=== PATIENT | female | born 1970 | race Caucasian/White ===

== ENCOUNTER 2020-10-22 10:12 | Emergency (ER) | payer OTHER ==
--- NOTE | 2020-10-22 10:41 | EDPHYS ---
Physician Documentation [facility] Name: Maria G Dong Age: 50 yrs Sex: Female : 1970 Arrival Date: 10/22/2020 Time: 10:15 Bed 23 Private MD: ED Physician Agapito Vickers HPI: 10/22 10:25 This 50 yrs old Female presents to ER via Ambulatory with complaints of Sinus jmm Congestion. 10:25 Onset: The symptoms/episode began/occurred gradually, 3 day(s) ago. Modifying factors: jmm The symptoms are alleviated by nothing, the symptoms are aggravated by nothing. Associated signs and symptoms: Pertinent negatives: fever, sore throat. This is a 50 year old female with a history of htn that presents to the ED with complaints of sinus congestion, cough, beginning appr 3 days ago. Patient states this had happened in the past. Denies fever. . 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 - Social history:: Smoking status: Patient denies any tobacco usage or history of. ROS: 10:25 Constitutional: Negative for fever, chills, and weight loss. jmm 10:25 ENT: Positive for rhinorrhea, sinus congestion, sinus pain. 10:25 Respiratory: Positive for cough. 10:25 All other systems are negative. Exam: 10:25 Constitutional: This is a well developed, well nourished patient who is awake, alert, jmm and in no acute distress. Head/Face: atraumatic. Eyes: EOMI, no conjunctival erythema appreciated 10:25 Neck: Trachea midline, Supple Chest/axilla: Normal chest wall appearance and motion. Cardiovascular: Regular rate and rhythm. No edema appreciated Respiratory: Normal respirations, no respiratory distress appreciated Abdomen/GI: Non distended, soft Back: Normal ROM Skin: General appearance color normal MS/ Extremity: Moves all extremities, no obvious deformities appreciated, no edema noted to the lower extremities Neuro: Awake and alert, normal gait Psych: Behavior is normal, Mood is normal, Patient is cooperative and pleasant 10:25 ENT: TM's: erythema, that is moderate, bilaterally, Posterior pharynx: erythema, that is mild. Vital Signs: 10:21 Weight 103.87 kg; Height 5 ft. 8 in. (172.72 cm); Pain 3/10; ll1 10:22 BP 113 / 73; Pulse 88; Resp 18; Temp 98.7(O); Pulse Ox 98% on R/A; ca1 10:21 Body Mass Index 34.82 (103.87 kg, 172.72 cm) ll1 MDM: 10:25 Patient medically screened. [facility] 10:39 Data reviewed: vital signs, nurses notes. Counseling: I had a detailed discussion with [facility] the patient and/or guardian regarding: the historical points, exam findings, and any diagnostic results supporting the discharge/admit diagnosis, the need for outpatient follow up, to return to the emergency department if symptoms worsen or persist or if there are any questions or concerns that arise at home. ED course: Patient is alert and non toxic in appearance in the ED. No signs of resp distress. Patient advised to follow up with pcp and otherwise given strict return precautions. patient understood and agrees with the plan of care. . Administered Medications: 10:39 Drug: Decadron (dexamethasone) 10 mg Route: IM; Site: right gluteus; ca1 10:59 Follow up: Response: No adverse reaction ca1 10:41 Drug: Rocephin (cefTRIAXone) 1 grams Route: IM; Site: left gluteus; ca1 10:59 Follow up: Response: No adverse reaction ca1 Disposition: 13:13 Co-signature as Attending Physician, Agapito Vickers MD I agree with the assessment and kdr plan of care. Disposition Summary: 10/22/20 10:40 Discharge Ordered Location: Home [facility] Condition: Stable [facility] Diagnosis - Acute upper respiratory infection, unspecified jmm - Acute serous otitis media, bilateral jmm Followup: jmm - With: Private Physician - When: 2 - 3 days - Reason: Recheck today's complaints, Continuance of care, Re-evaluation by your physician Discharge Instructions: - Discharge Summary Sheet jmm - Otitis Media, Adult jmm - Upper Respiratory Infection, Adult jmm Forms: - Medication Reconciliation Form [facility] - Thank You Letter [facility] - Antibiotic Education m - Prescription Opioid Use jmm Prescriptions: - Prednisone 20 mg Oral Tablet - take 3 tablets by ORAL route once daily for 5 days; 15 tablet; Refills: 0, jmm Product Selection Permitted - Zithromax Z-Camilo 250 mg Oral Tablet - take 1 tablet by ORAL route as directed for 5 days Day 1 - take two (2) tablets [facility] one time. Day 2, 3, 4 , 5 take one (1) tablet once daily.; 6 tablet; Refills: 0, Product Selection Permitted Signatures: Agapito Vickers MD MD kdr Mickail, Joel, PA PA Vidya Swan RN RN ca1 Dominic Harmon RN RN ll1
--- NOTE | 2020-10-22 10:41 | ER ---
Nurse's Notes [facility] Name: Maria G Dong Age: 50 yrs Sex: Female : 1970 Arrival Date: 10/22/2020 Time: 10:15 Bed 23 Private MD: Diagnosis: Acute upper respiratory infection, unspecified;Acute serous otitis media, bilateral Presentation: 10/22 10:21 Chief complaint: Patient states: "Bad sinus infection" since Tuesday night. No known ll1 fever. Benadryl and Sudafed aren't helping a lot. Coronavirus screen: Client denies travel out of the [place] in the last 14 days. congestion, headache, runny nose, Client presents with at least one sign or symptom that may indicate coronavirus-19. Standard/surgical mask placed on the client. Ebola Screen: Patient denies travel to an Ebola-affected area in the 21 days before illness onset. Initial Sepsis Screen: Does the patient meet any 2 criteria? No. Patient's initial sepsis screen is negative. Does the patient have a suspected source of infection? Yes: Other: sinus drainage/pain. Risk Assessment: Do you want to hurt yourself or someone else? Patient reports no desire to harm self or others. Onset of symptoms was October 19, 2020. 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 - Social history:: Smoking status: Patient denies any tobacco usage or history of. Screenin:23 Abuse screen: Denies threats or abuse. Denies injuries from another. Nutritional ca1 screening: No deficits noted. Tuberculosis screening: No symptoms or risk factors identified. Fall Risk None identified. Assessment: 10:24 General: Appears in no apparent distress. comfortable, Behavior is calm, cooperative, ca1 appropriate for age. Pain: Complains of pain in face Pain currently is 2 out of 10 on a pain scale. Pain began 2-3 days ago. Neuro: Level of Consciousness is awake, alert, obeys commands, Oriented to person, place, time, situation. Respiratory: Airway is patent Respiratory effort is even, unlabored, Respiratory pattern is regular, symmetrical, Breath sounds are clear bilaterally. Denies cough. EENT: Ear canal clear on left ear and right ear Reports nasal congestion nasal discharge that is watery since 4 days [employer]. Derm: Skin is intact, is healthy with good turgor, Skin is pink, warm \\T\\ dry. Musculoskeletal: Circulation, motion, and sensation intact. Capillary refill < 3 seconds. Vital Signs: 10:21 Weight 103.87 kg; Height 5 ft. 8 in. (172.72 cm); Pain 3/10; ll1 10:22 BP 113 / 73; Pulse 88; Resp 18; Temp 98.7(O); Pulse Ox 98% on R/A; ca1 10:21 Body Mass Index 34.82 (103.87 kg, 172.72 cm) ll1 ED Course: 10:15 Patient arrived in ED. wm 10:18 Donald Seals PA is PHCP. susan 10:18 Agapito Vickers MD is Attending Physician. [facility] 10:22 Vidya Shoemaker RN is Primary Nurse. ca1 10:23 Triage completed. ll1 10:23 Arm band placed on Patient placed in an exam room, on a stretcher. ll1 10:23 No provider procedures requiring assistance completed. Patient did not have IV access ca1 during this emergency room visit. 10:25 Patient has correct armband on for positive identification. Pulse ox on. NIBP on. Warm ca1 blanket given. Administered Medications: 10:39 Drug: Decadron (dexamethasone) 10 mg Route: IM; Site: right gluteus; ca1 10:59 Follow up: Response: No adverse reaction ca1 10:41 Drug: Rocephin (cefTRIAXone) 1 grams Route: IM; Site: left gluteus; ca1 10:59 Follow up: Response: No adverse reaction ca1 Outcome: 10:40 Discharge ordered by . [facility] 10:59 Discharged to home ambulatory. ca1 10:59 Condition: stable 10:59 Discharge instructions given to patient, Instructed on discharge instructions, follow up and referral plans. medication usage, Demonstrated understanding of instructions, follow-up care, medications, Prescriptions given X 2. 11:00 Patient left the ED. ca1 Signatures: Donald Seals PA PA jmm Acob, Cheryl, RN RN ca1 Dominic Harmon RN RN ll1 Kathleen Silva
[2020-10-22] MEDS ORDERED: dexAMETHasone 10 MG/ML VIAL ONE (10:55)
[2020-10-22] MEDS ORDERED: CEFTRIAXONE 1000 MG/VIAL ONE (10:55)
[2020-10-22] MEDS ORDERED: LIDOCAINE 1% MPF 2 ML AMPULE ONE (10:57)
[2020-10-22 11:19] VITALS: BP 113/73; TEMP 98.7; O2SAT 98
--- OUTSIDE RECORDS SUMMARY | 2020-10-22 15:25 | XMS REPORT | Continuity of Care Document ---
:1970 Author Organization [facility] t Address 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 CIGNA - MGD [id number] [address] [facility] CARECIGNA 00:00:00 - Medical HMO/POS/OPEN Center [id number] 2019-Presen tHMO/POS Problems Condition Condition Condition Status Onset Resolution Last Treating Co mments Source Name Details Category Date Date Treatment Clinician Date Complex Complex Diagnosis [facility] 2018[facility] Headache Headache 00:00: [facility] a 00 l (LUF/LI V/SA) Dizziness Dizziness Diagnosis Active 2018-[address] [facility] - [facility] l (LUF/LI V/SA) Attention Attention Problem Active [facility] deficit [facility] - hyperactiv hyperactiv Me moria ity ity l disorder disorder (LUF/L I V/SA) Hypertensi Hypertensi Problem Active [facility] - disorder disorder Memori a l (LUF/LI V/SA) Allergies, Adverse Reactions, Alerts This patient has no known allergies or adverse reactions. Social History Social Habit Start Date Stop Date Quantity Comments Source Sex Assigned At [facility] Smoking Status Start Date Stop Date Source [facility] Medications Ordered Filled Start Stop Current Ordering Indication Dosage Frequency Signature Comments Components Source Medication Medication Date Date Medication? Clinician (SIG) Name Name amlodipine amlodipine Yes [address] [address] 5 MG / 5 MG / [facility] - olmesartan olmesartan Mem oria medoxomil medoxomil l 20 MG Oral 20 MG Oral (ITALO F/LI Tablet Tablet V/SA) bustolic bustolic Yes [address] [facility] (LUF/LI V/SA) cyclobenzap cyclobenzap Yes 10mg 3xD [facility] (LUF/LI V/SA) msm/clarice msm/clarice Yes [facility] (LUF/LI V/SA) prochlorper prochlorper Yes 10mg 3xD [facility] azine 10 MG azine 10 MG L [facility]kes - Oral Tablet Oral Tablet M emoria l (LUF/LI V/SA) tumeric tumeric Yes [facility] (LUF/LI V/SA) vitamin b vitamin b Yes [facility] ([facility]F/LI V/SA) vivance vivance Yes [address] [facility] (LUF/LI V/SA) amlodipine amlodipine Yes 1 1xD orally [facility] 5 MG / 5 MG / daily [facility] - olmesartan olmesartan Mem oria medoxomil medoxomil l 20 MG Oral 20 MG Oral (ITALO F/LI Tablet Tablet V/SA) bustolic bustolic Yes 5 orally [facility] (LUF/LI V/SA) cyclobenzap cyclobenzap Yes 10mg 3xD orally [address] [facility]ine rine times per [facility] - day [facility] (LUF/LI V/SA) msm/clarice msm/clarice Yes orally [facility] (LUF/LI V/SA) prochlorper prochlorper Yes 10mg 3xD orally [address] azine 10 MG azine 10 MG times per [facility] - Oral Tablet Oral Tablet day as Memoria needed. l (as needed (LUF/LI for V/SA) headache, nausea and vomiting) tumeric tumeric Yes orally [facility] daily [facility] (LUF/LI V/SA) vitamin b vitamin b Yes orally [facility] daily [facility] (LUF/LI V/SA) vivance vivance Yes [address] daily [facility] (LUF/LI V/SA) Immunizations Ordered Immunization Filled Immunization Date Status Commen ts Source Name Name FLU SHOT 01/29 FLU SHOT 01/29 Unknown Completed [facility] (LUF/ABEBE/SA) Vital Signs Vital Name Observation Time Observation Value Comments Source Body Temperature 2020-07-05 12:00:00 98 [degF] [facility] (LUF/ABEEB/SA) Pulse Rate 2020-07-05 12:00:00 92 /min [facility] (LUF/ABEBE/SA) Respiratory Rate 2020-07-05 12:00:00 17 /min [facility] (F/ABEBE/SA) O2% BldC Oximetry 2020-07-05 12:00:00 98 % [facility] (F/ABEBE/SA) BP Systolic 2020-07-05 12:00:00 116 mm[Hg] [facility] (LUF/ABEBE/SA) BP Diastolic 2020-07-05 12:00:00 89 mm[Hg] [facility] (F/ABEBE/SA) Height 2020-07-05 12:00:00 68 [in_i] [facility] (LUF/ABEBE/SA) Weight 2020-07-05 12:00:00 106.7 kg [facility] (F/ABEBE/SA) BMI (Body Mass Index) 2020-07-05 12:00:00 36 kg/m2 [facility] (F/ABEBE/SA) Procedures Procedure Date / Time Performed Performing Clinician Marino e MM DIGITAL MAMMO 2019-11-23 11:00:00 [facility] BILATERAL BILATERAL FOOT SURGERY [facility] (LUF/ABEBE/SA) Plan of Care Planned Activity Planned Date Details Comments Source Future Scheduled 2021-11-[address] [facility] - [facility] 00:[facility] [code = 343570579] Future Scheduled 2020-04-[address] [facility] - Test 00:00:00 (12+) [code = Medical Center DEPRESSION SCREENING (12+)] Future Scheduled 2019-12-[address] [facility] - Test 00:00:00 (#1) [code = Medical Center INFLUENZA VACCINE (#1)] Future Scheduled 2019-07-11 SHINGLES VACCINES ([address] [facility] - Test 00:00:00 of 2) [code = Medical Center SHINGLES VACCINES (1 of 2)] Future Scheduled [address] [facility] - Test 00:00:00 (procedure) [code = [facility] 02123470] Future Scheduled [address] [facility] - Test 00:00:00 [facility] cervix (procedure) [code = 863152336] Future Scheduled 1988 DTAP/TDAP/TD VACCINES [facility] - Test 00:00:00 (1 - Tdap) [code = Medical C enter DTAP/TDAP/TD VACCINES (1 - Tdap)] Future Scheduled 1987-07-11 HEPATITIS C SCREENING [facility] - Test 00:00[facility]00 [code = HEPATITIS C Medical Center SCREENING] Future Scheduled [address] [facility] [facility] - Test 00:00:00 [facility] colon (procedure) [code = 442842306] Encounters Start End Encounter Admission Attending Care Care Encounter Source Date/Time Date/Time Type Type Clinicians Facility Department ID 2020-07-05 2020-07-05 Inpatient E KARON, [facility] [id number] 11:56:00 15:19:00 CAROL ANN TREVINO L u[facility] - [place], [address] [place], (LUF/[place] [address] 2020-07-05 2020-07-05 Inpatient [facility] [id number] 00:[facility]:00 00:00:00 [facility] [id number] [facility], [id number] [id number] [facility] [place], (LUF/LI [facility] V/[place] [address] Results Test Description Test Time Test Comments Results Result [facility] e Comments US VEINS LEG UNIL 2020-07-05 Doppler 14:25:04 [facility]/ABEBE/SA)Name: LISA FARIAS : 1970 Sex: F EX AM: Unilateral Lower Extremity Venous Duplex UltrasoundINDICATION: [id number]: PainCOMPARISON: NoneTECHNIQUE: Pitts scale, color Doppler and spectral waveform analysis of theunilateral lower extremity deep venous system was performed.FINDINGS:Ex ternal Iliac:Fully compressible with normal spontaneous waveforms.Common Femoral:Fully compressible with normal spontaneous waveforms.Proximal Greater Saphenous:Fully compressible.Femoral: Fully compressible with normal spontaneous waveforms. Normal response toaugmentation.Proxim al Deep Femoral:Normal spontaneous waveforms.Popliteal:F ully compressible with normal spontaneous waveforms.IMPRESSION: No evidence of deep venous thrombosis above the unilateral calf.This final report was electronically signed by Dr Venu Abdi 07/05/2020 2:19 PMDictated By: VENU ABDIDate: 07/05/2020 14:19 [facility] 2020-07-05 13:03:00 Test Item Value Reference Range Interpretation Comme nts Glucose (test code = GLU) 95 mg/dl 75-110 BUN (test code = BUN) 10.0 mg/dl 6.0-17.0 Creatinine (test code = 0.6 mg/dl 0.4-1.2 CREA) Sodium (test code = NA) 137 mmol/l 137-145 Potassium (test code = K) 4.0 mmol/l 3.5-5.0 Chloride (test code = CL) 107 mmol/l 98-107 CO2 (test code = CO2) 25 mmol/l 22-30 Calcium (test code = 9.3 mg/dl 8.4-10.2 CALC) T Protein (test code = 7.7 gm/dl 5.1-8.7 TP) Albumin (test code = ALB) 4.0 gm/dl 3.5-4.6 A/G Ratio (test code = 1.1 % 1.1-2.2 AGRAT) AST (SGOT) (test code = 16 U/L 11-36 AST) ALT (SGPT) (test code = 24 U/L 11-40 ALT) Alkaline Phos (test code 62 U/L 47-114 = ALKP) Total Bilirubin (test 0.3 mg/dl 0.2-1.2 code = TBIL) Globulin (test code = 3.7 gm/dl 2.3-3.5 H GLOBU) Calcium, Corrected (test 9.3 mg/dl 8.4-10.2 Mila ious formulas exist for code = CALCCORR) corrected s dominic calcium results, each y ielding different value s. This corrected resul t was based on the formula: Co rrected Calcium = Serum Calcium + [0.8 * ( 4 - SerumAl bumin)] EGFR if >60 mL/min/1.73m\\S\\2 (test code = EGFRAA) EGFR if Non- >60 mL/min/1.73m\\S\\2 Estimated Glomerular Taiwanese (test code = Filtra tion Rate (eGFR) EGFRNA) Reference Inter vals Decision Points for 18 y ears and older and average bod y mass: >= 60 Does not exclude kid bee disease. 30 - 59 Suggests moderate chroni c kidney disease and indica terra the need for further inv estigation including asses sment of proteinuria and cardiovascular factors. < 30 Us ually indicates a nee d for referral for assessment and management of chronic kidney failure. CBC WITH AUTO [id number] 12:42:00 Test Item Value Reference Range Interpretation Comments WBC (test code = 9.47 10\\S\\3/ul 4.80-10.80 WBC) RBC (test code = 4.90 10\\S\\6/ul 4.20-5.40 RBC) Hemoglobin (test 14.6 gm/dl 12.0-14.0 H code = HGB) Hematocrit (test 43.0 % 37.0-47.0 code = HCT) MCV (test code = 87.8 fL 81.0-99.0 MCV) MCH (test code = 29.8 pg 27.0-31.0 MCH) MCHC (test code = 34.0 gm/dl 33.0-37.0 MCHC) RDW (test code = 13.2 % 11.5-14.5 RDWVC) Platelet (test code 227 10\\S\\3/ul 130-400 = PLT) MPV (test code = 9.7 fL 7.4-10.4 A "NOT MEASUR ED" MPV) RESULTS ARE DIS PLAYED WHEN THE INSTRU MENT HAS A SUPPRESSE D OR UNREPORTABLE RE SULT. THIS WILL MOST OFTEN HAPPEN WITH THE MPV WHEN THERE IS A N ABNORMAL PLATEL ET DISTRIBUTION DU E TO A CRITICAL LOW VA LUE OR PLATELET CLUMPI NG. THE RDW MAY BE SUPPRESSED IF T HERE ARE MULTIPLE PE AKS PRESENT ON THE RBC HISTOGRAM. IN THIS CASE, A MANUAL REVIEW OF THE SLIDE WI LL BE PERFORMED, AND RBC MORPHOLOGY WILL BE NOTED ON THE RE PORT. NE% (test code = 62.1 % 42.0-75.0 NE) LY% (test code = 28.7 % 13.0-42.0 LY) MO% (test code = 8.1 % 4.0-14.0 MO) EO% (test code = 0.5 % 1.0-5.0 L EO) BA% (test code = 0.4 % 0.0-3.0 BA) IG% (test code = 0.2 % 0.0-0.4 IG%) MM, DIGITAL, MAMMO, SCREENING, WITH CHENG, BILATERAL INCLUDING [id number] 12:52:00Diagnostic workup per radiologist?->NoReason for Exam:->SCREENING MAMMOGRAMMRN#: [id number] - MM, DIGITAL, MAMMO, SCREENING, WITH CHENG, BILATERAL INCLUDING CAD BILATERAL DIGITAL SCREENING MAMMOGRAM 3D/2D WITH CAD: 11/23/2019 Comparison is made to exams dated: 06/15/2018 mammogram, 06/10/2016 mammogram, and 08/14/2014 mammogram [facility]. The tissue of both breasts is heterogeneously dense. This may lower the sensitivity of mammography. Tomosynthesis 3D imaging of the breast was also performed. Current study was also evaluated with a Computer Aided Detection (CAD) system. No significant masses, calcifications, or other findings are seen in either breast. There has been no significant interval change. IMPRESSION: NEGATIVEThere is no mammographic evidence of malignancy. A 1 year screening mammogram is recommended. Soco Riley M.D. as/penrad:12/07/2019 12:52:14 Normal BiRad 1-2 Mammogram BI-RADS: 1 Negative MM digital mammo screen with cheng [id number] 12:52:00Interface, External Ris In - 12/07/2019 2:09 PM CDTMRN#: [id number] - MM, DIGITAL, MAMMO, SCREENING, WITH CHENG, BILATERAL INCLUDING CAD BILATERAL DIGITAL SCREENING MAMMOGRAM 3D/2D WITH CAD: 11/23/2019 Comparison is made to exams dated: 06/15/2018 mammogram, 06/10/2016 mammogram, and 08/14/2014 mammogram - [facility]. The tissue of both breasts is heterogeneously dense. This may lower thesensitivity of mammography. Tomosynthesis 3D imaging of the breast was also performed. Current study was also evaluated with a Computer Aided Detection (CAD) system. No significant masses, calcifications, or other findings are seen in either breast. There has been no significant interval change. IMPRESSION: NEGATIVEThere is no mammographic evidence of malignancy. A 1 year screening mammogram is r ecommended. Soco Riley M.D. as/penrad:12/07/2019 12:52:14 Normal BiRad 1-2 Mammogram [facility]RADS: [facility] [id number] 20:20:15EXAM: XR CHEST AP/PA 1 VIEWDATE: 04/02/2019 7:39 PMINDICATION: [id number]: DyspneaCOMPARISON: Chest x-ray, 02/03/2012FINDINGS:Lines and tubes: NoneHeart size normal.No focal pulmonary opacity, pleural effusion or pneumothorax.Upper abdomen unremarkable with no free air. No acute bony abnormality.IMPRESSION:No evidence for acute disease.This final report was electronically signed by Dr Samy Daley MD 04/02/20198:13 PMDictated By: SAMY DALEYDate: 04/02/2019 20:13CT HEAD W/O [id number] 20:19:44Exam: Head CT without contrastHistory: Dizziness, headacheComparison studies: Head CT 09/10/2014Technique:Axial images were obtained from the skull base to the vertex.Coronal and sagittal images recons tructed from the axial data. Dose modulation,iterative reconstruction, and/or weight based adjustment of the mA/kV wasutilized to reduce the radiation dose to as low as reasonably achievable.Intravenous contrast: NoneFindings:Scalp: No abnormalities.Bones: No fractures, blastic or lytic lesions.Brainsulci: Appropriate for age.Ventricles: Normal in size and configuration. No hydrocephalus.Extra-axial spaces: No masses, no fluid collection.Parenchyma:No abnormal densities.No masses, acute hemorrhageor acute or chronic cortical vascular insults.Sellar/suprasellar region: No abnormalities.Craniocervical junction: Patent foramen magnum. No Chiari I malformation.Bilateral middle ear mastoids: Clear.Incidental findings:Minimal inflammatory thickening in the left sphenoid sinus at the location ofprevious small fluid level present on the prior 09/10/[address]IMPRESSION:No intracranial abnormalities.This final report was electronically signed by Dr Gloria Tai MD 04/02/20198:13 PMDictated By: GLORIA CANODate: 04/02/2019 20:[id number] 20:01:00 Test Item Value Reference Range Interpretation Comments Glucose (test code 101 mg/dl 75-110 = GLU) BUN (test code = 8.0 mg/dl 6.0-17.0 BUN) Creatinine (test 0.7 mg/dl 0.4-1.2 code = CREA) Sodium (test code = 135 mmol/l 137-145 L NA) Potassium (test 3.5 mmol/l 3.5-5.0 code = K) Chloride (test code 105 mmol/l 98-107 = CL) CO2 (test code = 25 mmol/l 22-30 CO2) Calcium (test code 9.0 mg/dl 8.4-10.2 = CALC) T Protein (test 8.0 gm/dl 5.1-8.7 code = TP) Albumin (test code 4.1 gm/dl 3.5-4.6 = ALB) A/G Ratio (test 1.1 % 1.1-2.2 code = AGRAT) AST (SGOT) (test 17 U/L 11-36 code = AST) ALT (SGPT) (test 34 U/L 11-40 code = ALT) Alkaline Phos (test 60 U/L 47-114 code = ALKP) Total Bilirubin 0.3 mg/dl 0.2-1.2 (test code = TBIL) Globulin (test code 3.9 gm/dl 2.3-3.5 H = GLOBU) Calcium, Corrected 8.9 mg/dl 8.4-10.2 Various f ormulas exist (test code = for corrected s dominic CALCCORR) calcium results , each yielding differ ent values. This corrected resul t was based on the fo rmula: Corrected Calci um = SerumCalcium + [0.8 * ( 4 - SerumAlbu min)] EGFR if >60 Taiwanese (test code mL/min/1.73m\\ = EGFRAA) S\\2 EGFR if Non- >60 Estimate d Glomerular Taiwanese (test code mL/min/1.73m\\ Filtrat ion Rate (eGFR) = EGFRNA) S\\2 Reference Inter vals Decision Points for 18 years and older and average body ma ss: >= 60 Does not exc lude kidney disease. 30 - 59 Suggests modera te chronic kidney disease and indicat es the need for furthe r investigation including asses sment of proteinuria and cardiovascular factors. < 30 Usually in dicates a need for refe rral for assessment and management of c hronic kidney failure. TROPONIN-I [id number] 20:01:00 Test Item Value Reference Range Interpretation Comments Troponin-I (test <0.015 ng/ml 0.000-0.034 N [address] URL code = TROP) is 0.045 ng/mL for the Siemens [place] T roponin I. The Joint Euro pean Society of Cardiology/[facility] College of Card iology (ESC/ACC) and tani reynolds [facility]A [facility] [place] Standards of La boratory Practices (NACB ) recommends that the diagnosis of AM I includes the presence of clinical history suggest darius of Acute Coronary Syndrome (ACS) and a max imum concentration o f cardiac troponin exceed ing the 99th percentile of a normal referenc e population [upp er reference limit (URL)] on at least one oc casion during the firs t 24 hours after the clini damon event. CBC WITH AUTO [id number] 19:48:00 Test Item Value Reference Range Interpretation Comments WBC (test code = 10.90 4.80-10.80 H WBC) 10\\S\\3/ul RBC (test code = 4.93 10\\S\\6/ul 4.20-5.40 RBC) Hemoglobin (test 14.9 gm/dl 12.0-14.0 H code = HGB) Hematocrit (test 44.0 % 37.0-47.0 code = HCT) MCV (test code = 89.2 fL 81.0-99.0 MCV) MCH (test code = 30.2 pg 27.0-31.0 MCH) MCHC (test code = 33.9 gm/dl 33.0-37.0 MCHC) RDW (test code = 13.3 % 11.5-14.5 RDWVC) Platelet (test code 257 10\\S\\3/ul 130-400 = PLT) MPV (test code = 9.6 fL 7.4-10.4 A "NOT MEASUR ED" MPV) RESULTS ARE DIS PLAYED WHEN THE INSTRU MENT HAS A SUPPRESSE D OR UNREPORTABLE RE SULT. THIS WILL MOST OFTEN HAPPEN WITH THE MPV WHEN THERE IS A N ABNORMAL PLATEL ET DISTRIBUTION DU E TO A CRITICAL LOW VA LUE OR PLATELET CLUMPI NG. THE RDW MAY BE SUPPRESSED IF T HERE ARE MULTIPLE PE AKS PRESENT ON THE RBC HISTOGRAM. IN THIS CASE, A MANUAL REVIEW OF THE SLIDE WI LL BE PERFORMED, AND RBC MORPHOLOGY WILL BE NOTED ON THE RE PORT. NE% (test code = 65.6 % 42.0-75.0 NE) LY% (test code = 25.5 % 13.0-42.0 LY) MO% (test code = 7.2 % 4.0-14.0 MO) EO% (test code = 0.8 % 1.0-5.0 L EO) BA% (test code = 0.4 % 0.0-3.0 BA) IG% (test code = 0.5 % 0.0-0.4 H IG%) CORONARY [id number] 14:33:00 Test Item Value Reference Range Interpretation Comments Triglycerides (test 176 mg/dl 0-149 H Trig. In terpretation code = TRIG) Guide: Nor mal: < 150 mg/dl Borderline High : 150 - 199 mg/dl High: 200 - 499 mg/dl Very High: >= 5 00 mg/dl Cholesterol (test code 231 mg/dl 0-198 H = CHOL) HDL (test code = HDL) 50 mg/dl 35-86 dLDL (test code = 147 mg/dl 0-99 H Direct LDL DILDL) Intrepretations : Optimal: <100 mg/dl Suspect: 100 - 129 mg/dl Border line: 130 - 159 mg/dl High: 160 - 189 mg/dl Very High: >1 90 mg/dl Risk Factor (test code 4.6 0.0-4.4 H Risk Factor = RFACT) Men Women R isk Factor 3.4 3.3 1/ 2 Average 5.0 4.4 Average 9.6 7.1 2X Average 24.0 11.0 3X Average vLDL (test code = 35 mg/dl 20-40 VLDL) TSH (Ultra Sensitive)2018-12-22 14:32:00 Test Item Value Reference Range Interpretation Comments TSH (test code = TSH) 2.45 mIU/L 0.47-4.68 [id number] 14:32:00 Test Item Value Reference Range Interpretation Comments Glucose (test code 97 mg/dl 75-110 = GLU) BUN (test code = 12.0 mg/dl 6.0-17.0 BUN) Creatinine (test 0.7 mg/dl 0.4-1.2 code = CREA) Sodium (test code = 139 mmol/l 137-145 NA) Potassium (test 4.9 mmol/l 3.5-5.0 code = K) Chloride (test code 102 mmol/l 98-107 = CL) CO2 (test code = 27 mmol/l 22-30 CO2) Calcium (test code 9.3 mg/dl 8.4-10.2 = CALC) T Protein (test 7.6 gm/dl 5.1-8.7 code = TP) Albumin (test code 4.2 gm/dl 3.5-4.6 = ALB) A/G Ratio (test 1.2 % 1.1-2.2 code = AGRAT) AST (SGOT) (test 14 U/L 11-36 code = AST) ALT (SGPT) (test 26 U/L 11-40 code = ALT) Alkaline Phos (test 61 U/L 47-114 code = ALKP) Total Bilirubin 0.3 mg/dl 0.2-1.2 (test code = TBIL) Globulin (test code 3.4 gm/dl 2.3-3.5 = GLOBU) Calcium, Corrected 9.1 mg/dl 8.4-10.2 Various f ormulas exist (test code = for corrected s dominic CALCCORR) calcium results , each yielding differ ent values. This corrected resul t was based on the fo rmula: Corrected Calci um = SerumCalcium + [0.8 * ( 4 - SerumAlbu min)] EGFR if >60 Taiwanese (test code mL/min/1.73m\\ = EGFRAA) S\\2 EGFR if Non- >60 Estimate d Glomerular Taiwanese (test code mL/min/1.73m\\ Filtrat ion Rate (eGFR) = EGFRNA) S\\2 Reference Inter vals Decision Points for 18 years and older and average body ma ss: >= 60 Does not exc lude kidney disease. 30 - 59 Suggests modera te chronic kidney disease and indicat es the need for furthe r investigation including asses sment of proteinuria and cardiovascular factors. < 30 Usually in dicates a need for refe rral for assessment and management of c hronic kidney failure. CBC WITH AUTO [id number] 14:00:00 Test Item Value Reference Range Interpretation Comments WBC (test code = 10.50 4.80-10.80 WBC) 10\\S\\3/ul RBC (test code = 4.95 10\\S\\6/ul 4.20-5.40 RBC) Hemoglobin (test 15.2 gm/dl 12.0-14.0 H code = HGB) Hematocrit (test 46.6 % 37.0-47.0 code = HCT) MCV (test code = 94.1 fL 81.0-99.0 MCV) MCH (test code = 30.7 pg 27.0-31.0 MCH) MCHC (test code = 32.6 gm/dl 33.0-37.0 L MCHC) RDW (test code = 13.2 % 11.5-14.5 RDWVC) Platelet (test code 272 10\\S\\3/ul 130-400 = PLT) MPV (test code = 10.8 fL 7.4-10.4 A "NOT MEASUR ED" MPV) RESULTS ARE DIS PLAYED WHEN THE INSTRU MENT HAS A SUPPRESSE D OR UNREPORTABLE RE SULT. THIS WILL MOST OFTEN HAPPEN WITH THE MPV WHEN THERE IS A N ABNORMAL PLATEL ET DISTRIBUTION DU E TO A CRITICAL LOW VA LUE OR PLATELET CLUMPI NG. THE RDW MAY BE SUPPRESSED IF T HERE ARE MULTIPLE PE AKS PRESENT ON THE RBC HISTOGRAM. IN THIS CASE, A MANUAL REVIEW OF THE SLIDE WI LL BE PERFORMED, AND RBC MORPHOLOGY WILL BE NOTED ON THE RE PORT. NE% (test code = 65.3 % 42.0-75.0 NE) LY% (test code = 25.7 % 13.0-42.0 LY) MO% (test code = 6.9 % 4.0-14.0 MO) EO% (test code = 1.2 % 1.0-5.0 EO) BA% (test code = 0.4 % 0.0-3.0 BA) IG% (test code = 0.5 % 0.0-0.4 H IG%)
== END 2020-10-22 11:00 | disposition home or self-care (01) ==
LOC: ER 10:12
DX: J06.9 Acute upper respiratory infection, unspecified (principal); H65.03 Acute serous otitis media, bilateral; I10 Essential (primary) hypertension; Z88.0 Allergy status to penicillin
CPT/HCPCS: 96372; 99283; J1100